=== PATIENT | male | born 1980 | race Caucasian/White ===

== ENCOUNTER 2017-02-22 08:55 | Emergency (ER) | payer BC, OTHER ==
[2017-02-22 09:12] VITALS: BP 129/90
--- NOTE | 2017-02-22 09:55 | EDM.PDOC ---
ED HPI GENERAL MEDICAL PROBLEM - General Chief Complaint: Eye Problems Stated Complaint: POSSIBLE PINK EYE Time Seen by Provider: 02/22/17 09:35 Source of Information: Reports: Patient History Limitations: Reports: No Limitations - History of Present Illness INITIAL COMMENTS - FREE TEXT/NARRATIVE: This patient complains of red itchy eyes for the past 4 days. He thinks he may have pink eye. His vision is unaffected. He has no other symptoms. - Related Data Allergies Allergy/AdvReac Type Severity Reaction Status Date / Time No Known Allergies Allergy Verified 02/22/17 09:07 Home Meds: Home Meds NK [No Known Home Meds] 02/22/17 [History] Past Medical History Gastrointestinal History: Reports: Inflammatory Bowel Disease Social & Family History - Caffeine Use Caffeine Use: Reports: None - Recreational Drug Use Recreational Drug Use: No ED ROS GENERAL - Review of Systems Review Of Systems: ROS reveals no pertinent complaints other than HPI. ED EXAM GENERAL W FULL EYE - Physical Exam Exam: See Below Exam Limited By: No Limitations General Appearance: Alert, WD/WN, No Apparent Distress Eye Exam: Bilateral Eye: Conjunctival Injection, PERRL Eyelids: Bilateral: Normal Appearance Conjunctiva & Sclera: Bilateral: Discharge (Watery), Injected Cornea Exam: Bilateral: Normal Appearance Extraocular Movements: Bilateral: Intact Pupillary Size: Bilateral: 3 mm Anterior Chamber: Bilateral: Normal Appearance Course - Vital Signs Last Recorded V/S: Last Vital Signs Temp 36.8 C 02/22/17 09:11 Pulse 90 02/22/17 09:11 Resp 15 02/22/17 09:11 BP 129/90 02/22/17 09:11 Pulse Ox 98 02/22/17 09:12 Departure - Departure Time of Disposition: 09:51 Disposition: Home, Self-Care 01 Condition: fair Clinical Impression: Conjunctivitis - Discharge Information Forms: ED Department Discharge Additional Instructions: This could be a case of pink eye most likely viral. Usually antibiotics are used as a precautionary measure. It's also likely that this is an allergic conjunctivitis. Try using one of the nonsedating [id number] antihistamines such as Claritin Rachel or Zyrtec. You should not need the antihistamines that include a decongestant such as Claritin D. and so forth. You may also use ketorolac ophthalmic drops. This is a nonsteroidal anti- inflammatory medication which will help relieve a lot of the redness and itching. If you have any deterioration in vision or worsening symptoms be sure you get checked right away. Either return to the ER or see your
== END 2017-02-22 10:02 | disposition home or self-care (01) ==
LOC: JP.ED 08:55
DX: H10.9 Unspecified conjunctivitis (principal)
CPT/HCPCS: 99283